=== PATIENT | male | born 1960 | race Caucasian/White ===

== ENCOUNTER 2016-10-12 08:17 | Outpatient (CLI) ==
[2016-08-26 08:00] VITALS: BMI 27.8
--- NOTE | 2016-10-12 09:45 | US ---
EXAM: ULTRASOUND ABDOMEN LIMITED HISTORY: Low attenuation lesions of the liver seen on CT. FINDINGS: Ultrasound abdomen, limited. Liver size was measured normal at 12.3 cm. A few liver les ions were identified, one in the right lobe at 1.2 cm, another in the right lobe at 2.2 cm and anoth er probably within the right lobe at 2.1 cm. The 1.2 cm entity is probably a simple cyst. The other entities are indeterminate and correlation with either CT or MRI liver protocol may be beneficial. No intrahepatic biliary dilatation identified. The portal vein is patent and hepatopedal. The gallbladder has been removed and the common bile duct diameter is normal 0.42 cm. Visualized pa ncreas was unremarkable. No ascites identified. IMPRESSION: 1. Three liver lesions were identified sonographically, one of which is likely a small simple cyst and the other two remain indeterminate. Correlation with CT or MRI liver protocol is recommended. 2. Post cholecystectomy state.]
== END 2016-10-12 08:18 | disposition home or self-care (01) ==
LOC: RAD 08:17
PROVIDERS: ATTEND Family Medicine
DX: R93.8 Abnormal findings on diagnostic imaging of other specified body structures (principal)

== ENCOUNTER 2016-11-09 08:24 | Outpatient (CLI) ==
[2016-08-26 08:00] VITALS: BMI 27.8
[2016-11-09 09:06] LABS: CREATININE 1.11 mg/dL (0.60-1.10)
--- NOTE | 2016-11-09 13:04 | MRI ---
EXAM: MRI abdomen without and with contrast HISTORY: Liver lesions TECHNIQUE: Multiplanar, multisequence without and following the administration of intravenous Omnis can, 20 mL using a dynamic contrast enhanced hepatic protocol. COMPARISON: CT abdomen from 08/26/2016 and abdominal sonogram from 10/12/2016. FINDINGS: The heart size is normal. No pericardial or pleural effusions are detected. There is no evidence of hepatic steatosis. A simple cyst in hepatic segment VIII is 1.3 cm. A seco nd cyst in hepatic segment VIII with simple features is 1.8 cm. A third simple cyst measuring 10.9 mm is detected between hepatic segment 8/6. A fourth simple cyst in hepatic segment six is 2.1 cm. A fifth simple hepatic cyst is detected at the medial aspect of the right hepatic lobe measuring 10 .9 mm. No suspicious hepatic lesions are evident. The portal and hepatic veins are patent. The ga llbladder is surgically absent. The bile ducts are nondilated. The spleen has normal size and sign al intensity. The pancreas has normal signal and morphology. The adrenal glands are normal. The k idneys have normal signal and morphology. Diverticula arise from the descending colon without MR evidence of diverticulitis. The intestines h ave normal caliber. The abdominal aorta has normal caliber and flow signal. No lymphadenopathy or ascites are appreciated. The bone marrow signal intensity is maintained. IMPRESSION: 1. Five simple hepatic cysts. No suspicious hepatic lesions. 2. No evidence of hepatic steatosis. 3. Previous cholecystectomy without biliary dilatation. 4. Colonic diverticulosis without MR evidence of diverticulitis.
== END 2016-11-09 08:25 | disposition home or self-care (01) ==
LOC: RAD 08:24
PROVIDERS: ATTEND Family Medicine
DX: R93.8 Abnormal findings on diagnostic imaging of other specified body structures (principal); K76.9 Liver disease, unspecified
CPT/HCPCS: 36415; 82565